=== PATIENT | female | born 1950 | race Hispanic/Latino ===

== ENCOUNTER 2018-01-26 02:24 | Emergency (ER) | payer MEDICARE ==
[2018-01-26 02:34] VITALS: BP 180/89
[2018-01-26] MEDS ORDERED: TYLENOL/CODEINE ONE (03:57)
[2018-01-26] MEDS ORDERED: DECADRON IM ONE (03:58)
[2018-01-26] MEDS ORDERED: DECADRON ONE (03:58)
[2018-01-26] MEDS ORDERED: TYLENOL/CODEINE PO ONE (04:00)
[2018-01-26] MEDS ORDERED: TYLENOL/CODEINE FEEDTUBE ONE (05:02)
--- NOTE | 2018-01-26 05:35 | Emergency Department Report ---
HPI - General Chief Complaint: Dental/Oral Time Seen by Provider: 01/26/18 03:58 - HPI HPI: Patient is a 67-year-old female who presents for allergic reaction subjective tongue lesion swelling symptoms have resolved with Decadron and Benadryl given in ED there is no stridor no wheezing no shortness of breath no dizziness no headache no nausea vomiting patient states breathing the baseline at this time ED Past Medical Hx - Past Medical History Hx Hypertension: Yes Hx Heart Attack/AMI: Yes Additional medical history: Chronic Back Pain, Fibromyalgia - Surgical History Past Surgical History?: No - Social History Smoking Status: Never Smoker Substance Use Type: None - Medications Home Medications: Home Medications Medication Instructions Recorded Confirmed Last Taken Type Dexamethasone [Decadron] 4 mg PO Q12H #4 tablet 01/26/18 Unknown Rx EPINEPHrine [Epipen 2-Naeem] 0.3 mg IJ PRN PRN #1 auto.injct 01/26/18 Unknown Rx Metoclopramide [Reglan] 10 mg PO TID PRN #30 tab 01/26/18 Unknown Rx diphenhydrAMINE [Benadryl CAP] 25 mg PO Q8HR PRN #30 capsule 01/26/18 Unknown Rx ED Review of Systems ROS: Stated complaint: MOUTH,THROAT PAIN Other details as noted in HPI Constitutional: denies: chills, fever Eyes: denies: eye pain, eye discharge, vision change ENT: throat pain, congestion Respiratory: denies: cough, shortness of breath, wheezing Cardiovascular: denies: chest pain, palpitations Endocrine: no symptoms reported Gastrointestinal: denies: abdominal pain, nausea, diarrhea Genitourinary: denies: urgency, dysuria, discharge Musculoskeletal: denies: back pain, joint swelling, arthralgia Skin: denies: rash, lesions Neurological: denies: headache, weakness, paresthesias Psychiatric: denies: anxiety, depression Hematological/Lymphatic: denies: easy bleeding, easy bruising Physical Exam - Physical Exam Vital Signs: Vital Signs 01/26/18 02:26 Temperature 98.4 F Pulse Rate 54 L Respiratory 18 Rate Blood Pressure 180/89 O2 Sat by Pulse 93 Oximetry General: Patient appears well well-hydrated no acute distress no use of accessory muscles Physical Exam: Lungs clear bilaterally no wheezing airway is patent no uvula swelling no lesions no exudate nares are patent symptoms are resolved ED Course Vital Signs 01/26/18 02:26 Temperature 98.4 F Pulse Rate 54 L Respiratory 18 Rate Blood Pressure 180/89 O2 Sat by Pulse 93 Oximetry ED Medical Decision Making - Medical Decision Making This is allergic reaction to food stuffs unknown plan Decadron by mouth for 2 more days Benadryl and Reglan followed PCP return to ED if symptoms worsen patient is currently NO 3 and was oriented ED somewhat to my immediate return the room without shortness of breath patient verbalizes understanding and agreement with discharge plan will be DC'd to home in stable condition at this time Critical care attestation.: If time is entered above; I have spent that time in minutes in the direct care of this critically ill patient, excluding procedure time. ED Disposition Clinical Impression: Allergic reaction Qualifiers: Encounter type: initial encounter Qualified Code(s): T78.40XA - Allergy, unspecified, initial encounter Disposition: DC-01 TO HOME OR SELFCARE Is pt being admited?: No Does the pt Need Aspirin: No Condition: Good Instructions: Food Allergy (ED), Allergies (ED), Epinephrine (Injection) Prescriptions: Dexamethasone [Decadron] 4 mg PO Q12H #4 tablet diphenhydrAMINE [Benadryl CAP] 25 mg PO Q8HR PRN #30 capsule PRN Reason: allergies EPINEPHrine [Epipen 2-Naeem] 0.3 mg IJ PRN PRN #1 auto.injct PRN Reason: severe allergies Metoclopramide [Reglan] 10 mg PO TID PRN #30 tab PRN Reason: allergies Referrals: CARLO CHRISTOPHER [Other] - 3-5 Days Forms: Work/School Release Form(ED) Time of Disposition: 05:36
== END 2018-01-26 05:47 | disposition home or self-care (01) ==
LOC: ED 02:24
DX: T78.40XA Allergy, unspecified, initial encounter (principal); M79.7 Fibromyalgia; I10 Essential (primary) hypertension; M54.9 Dorsalgia, unspecified; G89.29 Other chronic pain; X58.XXXA Exposure to other specified factors, initial encounter; Y93.89 Activity, other specified; Y92.89 Other specified places as the place of occurrence of the external cause; Y99.8 Other external cause status
CPT/HCPCS: 96372; 99282; J1100